=== PATIENT | female | born 1975 | race Caucasian/White ===

== ENCOUNTER 2020-12-28 16:06 | Outpatient (REF) | payer OTHER, SELFPAY ==
--- NOTE | ~2020-12-28 | MM_ITS ---
EXAMINATION: MM SCREENING DIGITAL BREAST TOMOSYNTHESIS, BILATERAL CLINICAL INFORMATION: Screening. Asymptomatic. The lifetime risk of breast cancer based on the Tyrer-Cuzick Model is 13%. COMPARISON: Mammography: 12/23/2019, 01/22/2018, 09/06/2016 TECHNIQUE: Digital breast tomosynthesis is performed in both the craniocaudal and mediolateral oblique views along with computer-aided detection (CAD). Synthesized 2D images are generated from the tomosynthesis. FINDINGS: The breasts are heterogeneously dense, which may obscure small masses (ACR BI-RADS breast composition Category c). Parenchymal pattern is similar to prior studies. There is no developing density. There is no interval mass or architectural modality or abnormal calcifications. The axilla and skin contours are unremarkable. MM/MM tomosynthesis screening BI IMPRESSION: No mammographic evidence of malignancy. ASSESSMENT: BI-RADS 1: Negative RECOMMENDATION: Routine annual mammography screening. This patient's information was entered into a reminder system with a target due date for their next mammogram.
== END 2020-12-28 16:07 | disposition home or self-care (01) ==
LOC: HO.MAMMO 16:06
PROVIDERS: Visit Provider Nurse Practitioner Family
DX: Z12.31 Encounter for screening mammogram for malignant neoplasm of breast (principal)
CPT/HCPCS: 77063; 77067

== ENCOUNTER 2021-11-05 11:46 | Emergency (ER) | payer OTHER, SELFPAY ==
--- NOTE | ~2021-11-05 | XR_ITS ---
EXAMINATION: XR CHEST CLINICAL INFORMATION: Cough and shortness of breath. COMPARISON: None TECHNIQUE: Frontal view of the chest was obtained. FINDINGS: Cardiac and mediastinal silhouettes are normal in appearance. Mild peribronchial thickening. The lungs are clear. XR/XR chest 1V IMPRESSION: Mild peribronchial thickening. The lungs and pleural spaces are clear.
[2021-11-05 12:11] VITALS: BP 144/81; PULSE 86; RESP 18; TEMP 36.9; O2SAT 97; BMI 33.7
--- NOTE | 2021-11-05 12:13 | ECG_ITS ---
Test Reason : cp Blood Pressure : / mmHG Vent. Rate : 088 BPM Atrial Rate : 088 BPM P-R Int : 154 ms QRS Dur : 074 ms QT Int : 352 ms P-R-T Axes : 033 -27 019 degrees QTc Int : 425 ms Normal sinus rhythm Possible Inferior infarct (cited on or before 04-NOV-2018) Abnormal ECG When compared with ECG of 04-NOV-2018 06:20, No significant change was found Referred By: Generic ED Physician Electronically Signed By:JANEE SNYDER MD
[2021-11-05 12:45] LABS: Influenza A Negative (Negative); Influenza B2 Negative (Negative)
[2021-11-05 12:46] LABS: COVID-19 Test Negative (Negative); IDNOW Serial# 08D9AD1C
--- NOTE | 2021-11-05 16:37 | ED.URI ---
HPI - URI/Sore Throat General Chief Complaint: Upper Respiratory Symptoms Stated Complaint: cough headache Time Seen by Provider: 11/05/21 16:37 Source: patient Mode of arrival: ambulatory History of Present Illness HPI Narrative: 46-year-old female with no significant past medical history presenting to the ED complaining dry cough, mild SOB, chest discomfort when coughing, headache, fatigue times a couple days. Has been presenting with similar symptoms. Denies abdominal pain, nausea/vomiting, ear pain, travel MD elicited complaint: cough and nasal congestion Onset (ago): day(s) Related Data Previous Rx's Medication Instructions Recorded acetaminophen 500 mg tablet 500 mg PO Q6H PRN fever or pain 11/05/21 (Tylenol Extra Strength) #14 tabs albuterol sulfate 90 mcg/actuation 2 puff inhalation Q4-6H PRN 11/05/21 aerosol inhaler shortness of breath or wheezing #6.7 grams benzonatate 100 mg capsule 100 mg PO TID PRN cough #14 caps 11/05/21 fluticasone propionate 50 2 spray intranasal DAILY #16 grams 11/05/21 mcg/actuation nasal spray,suspension (Flonase Allergy Relief) Allergies Allergy/AdvReac Type Severity Reaction Status Date / Time latex [Latex] Allergy Mild RASH Unverified 11/05/21 12:11 Penicillins Allergy Mild RASH Unverified 01/08/20 15:59 Review of Systems Review of Systems: Constitutional: No Fever, No Chills, + Fatigue, No Malaise ENT/Mouth: No Ear Pain, + Nasal Congestion, No Sinus Pain, No Hoarseness, No sore throat, + Rhinorrhea, No Swallowing Difficulty Eyes: No Eye Pain, No Swelling, No Redness, No Discharge, No Vision Changes Cardiovascular: + Chest Pain, + SOB, No Edema, No Palpitations Respiratory: + Cough, No Sputum, No Dyspnea Gastrointestinal: No Nausea, No Vomiting, No Diarrhea, No Constipation, No Abdominal pain Genitourinary: No Dysuria, No Urinary Frequency, No Hematuria Musculoskeletal: No joint pain, No Myalgias, No Joint Swelling Skin: No Skin Lesions, No rash Neuro: No Weakness, No Numbness, No Dizziness, + Headache Yes all other systems are reviewed and are negative [facility] Past Medical History Attestation statement: The following information was validated with the patient. Social History Social History Advance Directives: No Advance Directives Information Provided: No Physical Exam Vital Signs: Vital Signs: Last Vital Signs Temp 98.4 F 11/05/21 12:11 Pulse 86 11/05/21 12:11 Resp 18 11/05/21 12:11 BP 144/81 H 11/05/21 12:11 Pulse Ox 97 11/05/21 12:11 O2 Del Method 11/05/21 12:11 BMI result Body Mass Index 33.7 Const: General: cooperative, healthy appearing and no acute distress Orientation/consciousness: patient oriented x3 Limitations: no limitations HEENT: Head: Yes normal to inspection and Yes atraumatic Ears: hearing grossly normal bilaterally, external ears normal, TM's normal bilaterally and mastoids normal General nose exam: Normal external nose present Face and sinus: Yes normal facial exam Mouth: Normal oral and palatal mucosa present Throat: Yes posterior oropharynx normal, Yes tonsils normal, Yes uvula midline, No peritonsillar mass and No uvular edema Eyes: General: appearance normal, both eyes and all related structures EOM: EOMs intact bilaterally Neck: Neck: Yes normal visual inspection, Yes no lymphadenopathy and Yes no meningeal signs Resp: Effort & Inspection: normal respiratory effort and no respiratory distress Auscultation: clear to auscultation bilaterally, no rales, no rhonchi and no wheezes Cardio: Rate: regular rate Heart sounds: S1 normal heart sound present and S2 normal heart sound present Skin: Rashes: no rashes Wounds: no wounds Neuro: General: patient oriented x3, tone normal and no meningeal signs Gait exam (Neuro): Normal gait present Extrem: General: Yes normal to inspection Course Course Course Narrative: -COVID-19 and influenza negative XR chest 1V IMPRESSION: Mild peribronchial thickening. The lungs and pleural spaces are clear. >> results discussed with patient including worrisome signs and symptoms and strict return precautions MDM - URI/Sore Throat MDM Narrative Medical decision making narrative: 46-year-old female with no significant past medical history presenting to the ED complaining dry cough, mild SOB, chest discomfort when coughing, headache, fatigue times a couple days. On exam vital signs stable, in the ED, nontoxic appearing, exam nonfocal. Concern for viral illness including COVID-19 versus influenza. Rule out pneumonia versus bronchitis. Symptoms atypical for ACS/PE Plan: EKG, COVID-19/influenza testing, CXR Differential Diagnosis Differential diagnosis: Likely upper respiratory infection Medical Records Attestation: I reviewed the patient's medical records. Lab Data Attestation: I reviewed the patient's lab results. Labs: Lab Results 11/05/21 11/05/21 Range/Units 12:15 12:15 COVID-19 (BHAVESH) Negative (Negative) COVID-19 Clin Com See Note Influenza Type A (SNEHAL) Negative (Negative) Influenza Type B (SNEHAL) Negative (Negative) Influenza A & B Note See Note ECG Data Attestation: I personally reviewed and interpreted this ECG as follows: ECG interpretation date: 11/05/21 ECG interpretation time: 12:07 Interpretation: EKG normal sinus rhythm at a rate of 88. PA interval 154. QRS 74. No STEMI. No significant change when compared to prior EKGs Discharge Plan Discharge Clinical Impression: Upper respiratory infection Patient Disposition: Home, Self-Care Instructions: Viral Syndrome (ED) Additional Instructions: Your chest x-ray shows some thickening, no pneumonia. He tested negative for COVID-19 and the flu. rest. Stay hydrated. Tessalon Perles are for cough Flonase is a nasal decongestant. Use albuterol inhaler as needed for wheezing/shortness of breath In addition take Tylenol and Motrin Follow-up with her doctor If symptoms persist or worsen return to the emergency department Prescriptions: New acetaminophen [Tylenol Extra Strength] 500 mg tablet 500 mg PO Q6H PRN (Reason: fever or pain) Qty: 14 0RF fluticasone propionate [Flonase Allergy Relief] 50 mcg/actuation spray,suspension 2 spray intranasal DAILY Qty: 16 0RF Rx Instructions: administer into each nostril benzonatate 100 mg capsule 100 mg PO TID PRN (Reason: cough) Qty: 14 0RF albuterol sulfate 90 mcg/actuation HFA aerosol inhaler 2 puff inhalation Q4-6H PRN (Reason: shortness of breath or wheezing) Qty: 6.7 0RF Referrals: [facility] [Primary Care Provider] - 5 days
== END 2021-11-05 18:13 | disposition home or self-care (01) ==
PROVIDERS: Emergency Provider Emergency Medicine
DX: J06.9 Acute upper respiratory infection, unspecified (principal); Z20.822 Contact with and (suspected) exposure to COVID-19; R51.9 Headache, unspecified
CPT/HCPCS: 71045; 87502; 87635; 93005; 99283; 99284

== ENCOUNTER 2022-07-11 15:19 | Outpatient (REF) | payer OTHER, SELFPAY ==
--- NOTE | ~2022-07-11 | MM_ITS ---
EXAMINATION: MM SCREENING DIGITAL BREAST TOMOSYNTHESIS, BILATERAL CLINICAL INFORMATION: Screening. Asymptomatic. The lifetime risk of breast cancer based on the Tyrer-Cuzick Model is 9%. COMPARISON: Mammography: 12/28/2020, 12/23/2019, 01/22/2018 TECHNIQUE: Digital breast tomosynthesis is performed in both the craniocaudal and mediolateral oblique views along with computer-aided detection (CAD). Synthesized 2D images are generated from the tomosynthesis. FINDINGS: The breasts are heterogeneously dense, which may obscure small masses (ACR BI-RADS breast composition Category c). There are no significant masses, abnormal calcifications, or other abnormalities. Parenchymal pattern is similar to prior studies. There is no developing density or architectural abnormality. The axilla and skin contours are unremarkable. No significant changes. MM/MM tomosynthesis screening BI IMPRESSION: No mammographic evidence of malignancy. ASSESSMENT: BI-RADS 1: Negative RECOMMENDATION: Routine annual mammography screening. This patient's information was entered into a reminder system with a target due date for their next mammogram.
== END 2022-07-11 15:20 | disposition home or self-care (01) ==
LOC: HO.MAMMO 15:19
PROVIDERS: PCP Registered Nurse; Visit Provider Nurse Practitioner Family
DX: Z12.31 Encounter for screening mammogram for malignant neoplasm of breast (principal)
CPT/HCPCS: 77063; 77067

== ENCOUNTER 2022-11-06 11:54 | Outpatient (REF) | payer OTHER, SELFPAY ==
[2022-11-06 14:54] LABS: Cholesterol 190 mg/dL; HDL Cholesterol 58 mg/dL; LDL Cholesterol Calculated 119 mg/dl; Triglycerides 66 mg/dL
== END 2022-11-06 11:55 | disposition home or self-care (01) ==
LOC: HO.HHCL 11:54
PROVIDERS: Visit Provider Registered Nurse
DX: E78.00 Pure hypercholesterolemia, unspecified (principal); E55.9 Vitamin D deficiency, unspecified
CPT/HCPCS: 36415; 80061; 82306

== ENCOUNTER 2023-01-31 | Outpatient (REF) | payer OTHER, SELFPAY | END 2023-01-31 00:01 | disposition home or self-care (01) | LOC: HO.HHCLNP | PROVIDERS: Visit Provider Internal Medicine | DX: R30.9 Painful micturition, unspecified (principal) | CPT/HCPCS: 87086; 87088; 87186 ==

== ENCOUNTER 2023-02-26 | Outpatient (REF) | payer OTHER, SELFPAY | END 2023-02-26 00:01 | disposition home or self-care (01) | LOC: HO.HHCLNP | PROVIDERS: Visit Provider Nurse Practitioner Family | DX: R30.0 Dysuria (principal) | CPT/HCPCS: 87086 ==

== ENCOUNTER 2023-07-04 07:52 | Outpatient (REF) | payer OTHER, SELFPAY | END 2023-07-04 07:53 | disposition home or self-care (01) | LOC: HO.HHCLNP 07:52 | PROVIDERS: Visit Provider Emergency Medicine | DX: R30.0 Dysuria (principal) | CPT/HCPCS: 87086; 87088; 87186 ==

== ENCOUNTER 2023-07-04 13:10 | Emergency (ER) | payer OTHER, SELFPAY | END 2023-07-04 14:22 | disposition left against medical advice (07) | PROVIDERS: Emergency Provider Emergency Medicine; PCP Registered Nurse | DX: Z53.21 Procedure and treatment not carried out due to patient leaving prior to being seen by health care provider (principal); R53.81 Other malaise ==

== ENCOUNTER 2023-07-05 16:02 | Outpatient (REF) | payer OTHER, SELFPAY ==
[2023-07-05 17:42] LABS: Estimated Average Glucose 105 mg/dL; Hemoglobin A1c % 5.3 % (<6.0)
== END 2023-07-05 16:03 | disposition home or self-care (01) ==
LOC: HO.HHCL 16:02
PROVIDERS: Visit Provider Emergency Medicine
DX: N39.0 Urinary tract infection, site not specified (principal)
CPT/HCPCS: 36415; 83036

== ENCOUNTER 2023-07-20 11:39 | Outpatient (REF) | payer OTHER, SELFPAY | END 2023-07-20 11:40 | disposition home or self-care (01) | LOC: HO.MAMMO 11:39 | PROVIDERS: Visit Provider Registered Nurse | DX: Z12.31 Encounter for screening mammogram for malignant neoplasm of breast (principal) | CPT/HCPCS: 77063; 77067 ==

== ENCOUNTER → 2023-07-20 11:45 | Outpatient (BNV) | payer OTHER, SELFPAY | PROVIDERS: Visit Provider Radiology Diagnostic Radiology | DX: Z12.31 Encounter for screening mammogram for malignant neoplasm of breast (principal) | CPT/HCPCS: 77063; 77067 ==

== ENCOUNTER 2024-04-07 16:23 | Outpatient (REF) | payer OTHER, SELFPAY | END 2024-04-07 16:24 | disposition home or self-care (01) | LOC: HO.LNP 16:23 | PROVIDERS: Visit Provider Internal Medicine | DX: Z13.89 Encounter for screening for other disorder (principal) ==

== ENCOUNTER 2024-04-08 12:29 | Outpatient (REF) | payer OTHER, SELFPAY | END 2024-04-08 12:30 | disposition home or self-care (01) | LOC: HO.HHCLNP 12:29 | PROVIDERS: Visit Provider Internal Medicine | DX: R39.9 Unspecified symptoms and signs involving the genitourinary system (principal) | CPT/HCPCS: 87086 ==

== ENCOUNTER 2024-04-21 11:01 | Outpatient (REF) | payer OTHER, SELFPAY ==
[2024-04-21 13:10] LABS: MANUAL DIFF FLAG NO
[2024-04-21 13:22] LABS: Basophils Percent Auto 0.9 % (0-2); Eosinophils Absolute Auto 0.2 X10*3/uL (0.0-0.4); Eosinophils Percent Auto 4.5 % (0-4); Hematocrit 38.9 % (37.0-47.0); Hemoglobin 12.5 g/dl (12.0-16.0); Imm Gran Abs Auto 0.01 X10*3/uL (0.00-0.03); Imm Gran Pct Auto 0.2 % (0.0-0.4); Lymphocytes Absolute Auto 1.3 X10*3/uL (1.2-4.9); Lymphocytes Percent Auto 28.1 % (20-40); Mean Corpuscular HGB Conc 32.1 g/dl (31.0-35.0); Mean Corpuscular Hemoglobin 25.9 pg (27.0-33.0); Mean Corpuscular Volume 80.7 fL (80.0-98.0); Mean Platelet Volume 10.6 fL (9.4-12.3); Monocytes Absolute Auto 0.3 X10*3/uL (0.1-1.2); Monocytes Percent Auto 7.3 % (2-11); Neutrophils Absolute Auto 2.8 x10*3/uL (2.0-8.3); Platelet Count 317 X10*3/uL (160-400); Red Blood Count 4.82 X10*6/uL (4.20-5.50); White Blood Count 4.7 X10*3/uL (4.8-10.8)
[2024-04-21 14:42] LABS: Alanine Aminotransferase 22 U/L (0-31); Alkaline Phosphatase 78 U/L (39-117); Anion Gap 10 (12-20); Aspartate Amino Transferase 24 U/L (5-31); Bilirubin Total 0.4 mg/dL (0.0-1.0); Blood Urea Nitrogen 9 mg/dL (9-16); Carbon Dioxide 27 mmol/L (22-29); Chloride 108 mmol/L (96-108); Estimated Glomerular Filt Rate > 60; Glucose Random 92 mg/dL (60-115); Sodium 141 mmol/L (135-145)
[2024-04-22 22:28] LABS: Lyme Abs Screen <0.90 index
== END 2024-04-21 11:02 | disposition home or self-care (01) ==
LOC: HO.HHCL 11:01
PROVIDERS: Visit Provider Nurse Practitioner Family
DX: L03.111 Cellulitis of right axilla (principal)
CPT/HCPCS: 36415; 80053; 85025; 86617; 86618

== ENCOUNTER → 2024-07-22 15:30 | Outpatient (BNV) | payer OTHER, SELFPAY | PROVIDERS: Visit Provider Internal Medicine | DX: Z12.31 Encounter for screening mammogram for malignant neoplasm of breast (principal) | CPT/HCPCS: 77063; 77067 ==

== ENCOUNTER 2024-07-22 15:33 | Outpatient (REF) | payer OTHER, SELFPAY ==
--- OUTSIDE RECORDS SUMMARY | 2024-07-22 18:26 | XMS_ITS | Encounter Summary ---
Author Organization [employer] Address [address] [place] [address] Care Team Providers Care Health Program Specialist Name Role Phone Mahsa Bills IT RECRUITER Primary Care Provider [phone] Raven Stafford MD Primary Care Pro vider Miroslava Morillo NP Primary Care Provider [phone] Encounter Details Date Type Department Care Team (Late st Contact Info) Description 11/07/2022 Abstract [facility] [address] [place] [address] Mahsa Bills FNP [address] [place] [address] Dept [place] [address] Social History Tobacco Use Types Packs/Day Years Used Date Smoking Tobacco: Never Smokeless Tobacco: Never Alcohol Use Standard Drinks/Week Comments Yes 2 (1 standard drink = 0.6 oz pur e alcohol) occasionally Depression Answer Date Recorded Patient Health Questionnaire-9 Score 1 06/19/2022 Depression Answer Date Recorded Patient Health Questionnaire-2 Score 1 06/19/2022 Comments Unknown Sex and Gender Information Value Date Recorded Sex Assigned at Female 02/20/2022 10:14 AM EDT Legal Sex Female 10:14 AM EDT Gender Identity Female 02/20/2022 10:14 AM EDT Sexual Orientation Straight 02/20/2022 10 :14 AM EDT COVID-19 Exposure Response Date Recorded In the last 10 days, have yo u been in contact with someone who was confirmed or suspected to have Coronavirus/COVID-19? No / Unsure 10/23/2022 3:37 PM EDT documented as of this encounter Plan of Treatment Upcoming Encounters Date Type Department Care Team (Late st Contact Info) Description 09/23/2024 3:30 PM EDT Office Visit [facility] [address] [place], [place] [phone] Miroslava Morillo NP [address] [place], [place] [phone] documented as of this encounter Visit Diagnoses Not on filedocumented in this encounter Additional Health Concerns Assessment Noted Time PHQ-9 Depression Total Score: 1 06/19/19 23 2:18 PM EST documented as of this encounter Care Teams Health Program Specialist Relationship Specialty Start Date End Date Mahsa Bills FNP PCP - General Family Medicine 12/21/21 01/24/23 Raven Stafford MD [address] [place] [address] [phone] PCP - General Internal Medicine 01/25/23 04/06/24 Miroslava Morillo NP [address] [place] [address] [phone] PCP - General Family Medicine 04/07/24 documented as of this encounter
--- OUTSIDE RECORDS SUMMARY | 2024-07-22 18:26 | XMS_ITS | Clinical Summary ---
Author Organization [employer] Address [address] [facility] 7[address] [place] [address] Care Team Providers Care Senior Telecommunications Specialist Name Role Phone Miroslava Morillo NP Primary Care Provider [phone] Allergies Active Allergy Reactions Criticality Noted Date Comments Latex 12/20/2012 Penicillin V 12/31/2012 Penicillins 02/20/2024 Medications albuterol 108 (90 Base) MCG/ACT inhalerIndication s:Mild intermittent asthma without complication INHALE 2 PUFF BY MOUTH EVERY 4-6 HOURS NEEDED FOR SHORTNESS OF BREATH OR WHEEZING 2 Active Pain Reliever Extra Strength 500 MG tabletIndications :Bilateral calf pain TAKE 1 TABLET BY MOUTH EVERY 6 HOURS NEEDED FOR FEVER OR PAIN. 2 Active cholecalciferol (Vitamin D-3) 50 MCG (2000 UT) capsuleIndication s:Vitamin D deficiency Take 1 capsule (50 mcg) by mouth in the morning. 90 capsule 1 3 Active fluticasone (Flonase) 50 MCG/ACT nasal sprayIndications: Mild intermittent asthma without complication Administer 2 sprays into each nostril in the morning. Shake gently. Before first use, prime pump. After use, clean tip and replace cap. 16 g 3 3 Active lidocaine (Lidoderm) 5 % patchIndications: Lumbar radiculopathy, acute Apply 1 patch topically in the morning. Remove & discard patch within 12 hours or as directed by MD. 30 patch 1 3 Active Diclofenac Sodium (Voltaren) 1 % gelIndications:Ana mbar radiculopathy, acute Apply 2 g topically if needed in the morning and at bedtime (muscle pain). 100 g 3 3 Active Flovent HFA 110 MCG/ACT inhalerIndication s:Mild intermittent asthma without complication INHALE 1 PUFF BY MOUTH TWICE DAILY. RINSE MOUTH AFTER USING. 12 g 3 3 Active metoprolol tartrate (Lopressor) 25 MG tablet Take 25 mg by mouth 2 times daily. 3 Active Blood Pressure kit 1 kit in the morning. 1 kit 3 Active hydrocortisone 2.5 % ointmentIndicatio ns:Rash Apply topically 2 times daily. 28.35 g 4 Active cetirizine (ZyrTEC) 10 MG tablet Take 1 tablet (10 mg) by mouth Once per day. Prn. 30 tablet 4 Active triamcinolone (Kenalog) 0.1 % creamIndications: Other atopic dermatitis Apply topically if needed in the morning and at bedtime (pain and swelling). 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 Tingling in wrist that comes and goes. Aggravated while at work. EMG ordered 06/19/22, faxed 08/25/22. Not performed yet Assessment & Plan (10/23/2022 5:13 PM EDT): Will task team to assist in scheduling Followup 1 month or sooner PRN Abnormal EKG 10/23/2022 Overview (10/23/2022): Hx of abnormal EKG in ED on 11/04/2018 with inferior infarct of indeterminate age . No f/u with cardiology. 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 No f/u with cardiology. Irregular heart rhythm with skipped beats on auscultation today 10/23/22 w/ abnormal EKG Care managed by Cardiology. Reports stress test and 24 hour heart monitor. 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 Care managed by [facility]. Using compression stockings. Affects left leg most. Assessment & Plan (01/03/2023 7:52 PM EDT): Will Rx more DME compression stockings F/u PRN Assessment & Plan (10/23/2022 5:01 PM EDT): Followup PRN with specialist Health care maintenance 06/19/2022 Overview (10/23/2022): Last Mammo 12/30/20 - BIRADS 1 Pap: Scheduled next month IZ up to date Mild intermittent asthma 09/26/2016 Overview (10/23/2022): Refill Flonase Continue Flovent BID use. Pt using as prescribed DAVID use PRN Obesity 06/09/2015 Encounters Date Type Department Care Team Description 07/03/2024 Telephone [facility] [address] [place] [address] Gloria Shukla MA Chart Prep 04/29/2024 Telephone [facility] [address] [place] [address] Shital Hastings MA Recall from Last 3 Months Immunizations Name Administration Dates Next Due Hep B, adult 03/11/2014,10/22/2013,12/31/2012 Influenza Injectable Quadriv alant Preservative Free IIV4 MDCK 01/19/2022 Influenza injectable quadriv alent IIV4 with preservative 06/09/2015 Influenza injectable quadriv alent preservative free 06/19/2022,04/05/2020,01/24/2019,2014 Influenza, IIV3, injectable 01/30/2023, 4 Influenza, Split (incl. jose fied surface antigen) 12/31/2012 Moderna Covid-19 Vaccine 12+ 01/22/2024,01/31/20 23 Tdap 06/06/2019,02/28/2010 Social History Tobacco Use Types Packs/Day Years Used Date Smoking Tobacco: Never Passive Smoke Exposure: Never Smokeless Tobacco: Never Tobacco Cessation:Counseling Given: Not Answered Alcohol Use Standard Drinks/Week Comments Yes 2 (1 standard drink = 0.6 oz pur e alcohol) occasionally Depression Answer Date Recorded Patient Health Questionnaire-9 Score 1 06/19/2022 Housing Stability Answer Date Recorded What is your housing situation today? I have smith barrios 02/07/[address] you li ve. Do you have problems with any of the following? None of the above 02/07/2023 Food Insecurity Answer Date Recorded Within the past 12 months, y ou worried that your food would run out before you got money to buy more: Never True 02/07/2023 Within the past 12 months,th e food you bought just didn't last and you didn't have enough money to get more: Never True Transportation Answer Date Recorded In the past 12 months, has l ack of transportation kept you from medical appts, meetings, work or from getting things needed for daily living? No 02/07/2023 Utilities Answer Date Recorded In the past 12 months, has t he electric, gas, oil or water company threatened to shut off services in your home? No 02/07/2023 Depression Answer Date Recorded Patient Health Questionnaire-2 Score 1 06/19/2022 Comments Unknown Sex and Gender Information Value Date Recorded Sex Assigned at Female 02/20/2022 10:14 AM EDT Legal Sex Female 10:14 AM EDT Gender Identity Female 02/20/2022 10:14 AM EDT Sexual Orientation Straight 02/20/2022 10 :14 AM EDT Last Filed Vital Signs Vital Sign Reading Time Taken Comments Blood Pressure 136/84 04/21/2024 10:29 AM EST Pulse 88 04/21/2024 10:29 AM EST Temperature 37.1 ??C (98.7 ??F) 04/21/2024 10:[address] Respiratory Rate 14 04/21/2024 10:29 AM EST Oxygen Saturation 99% 04/21/2024 10:29 AM EST Inhaled Oxygen Concentration - - Weight 96.2 kg (212 lb) 04/21/2024 10:29 AM EST Height 162.6 cm (5' 4 ) 10/17/2023 4:56 PM EDT Body Mass Index 36.39 10/17/2023 4:56 PM EDT Plan of Treatment Upcoming Encounters Date Type Department Care Team (Late st Contact Info) Description 09/23/2024 3:30 PM EDT Office Visit [facility] [address] [place], [place] [phone] Miroslava Morillo NP [address], [place] [phone] Health Maintenance Due Date Last Done Comments CT Colonography 1973 Colonoscopy 1973 Colorectal Cancer Screening 1973 FIT DNA/Cologuard 1973 FIT 1973 FOBT 1973 Sigmoidoscopy 1973 Family Planning (PISQ) 01/10/1988 Hepatitis C Screening 1991 Pneumococcal Vaccine: 50+ Years (1 of 2 - PCV) 01/10/1992 Zoster Vaccines (1 of 2) 01/10/1992 Depression Screening 06/19/2023 06/19/2022, 06/19/19 23 SDOH Screening 06/19/2023 06/19/2022 Influenza Vaccine (#1) 2023 3, 06/19/2022, 01/19/2022, Additional history exists COVID-19 Vaccine ( season) 2024 01/22/2024, 01/30/2023, 02/21/2022, Additional history exists Tobacco Screening 04/07/2025 04/07/2024 Alcohol/Substance Use Screening 04/21/2025 04/21/2024 Mammogram 07/19/2025 07/20/2023, 09/0 06/2019, 01/23/2018 Pap Smear 10/04/2025 10/04/2022 Cervical Cancer Screening 10/05/2027 HPV/Cotest 10/05/2027 10/04/2022, 03/29/2017 Lipid Panel 11/07/2027 11/06/2022, 07/15/2021 DTaP/Tdap/Td Vaccines (3 - Td or Tdap) 06/06/2029 06/06/2019, 02/28/2010 RSV Patients and Patients Aged 60 years or older (1 - 1-dose 75+ series) 01/10/2048 Hepatitis B Vaccines Completed 03/11/2014, 10/22/2013, 12/31/2012 HIV Screening Completed 04/03/2019 HIB Vaccines Aged Out No longer eligi ble based on patient's age to complete this topic HPV Vaccines Aged Out No longer eligi ble based on patient's age to complete this topic Hepatitis A Vaccines Aged Out No long er eligible based on patient's age to complete this topic IPV Vaccines Aged Out No longer eligi ble based on patient's age to complete this topic Meningococcal Vaccine Aged Out No perla rubia eligible based on patient's age to complete this topic RSV under 20 months Aged Out No longe r eligible based on patient's age to complete this topic Rotavirus Vaccines Aged Out No longer eligible based on patient's age to complete this topic Procedures Procedure Name Priority Date/Time Associated Diagnosis Comments BI MAMMOGRAM SCREENING TOMOSYNTHESIS BILATERAL Routine 07/20/2023 11:55 AM EDT LIPID PANEL, STANDARD Routine 11/06/2022 11:59 AM EDT HM PAP/HPV Routine 10/04/2022 ZZZ HISTORICAL HIV AB/AG Routine 04/03/2019 2:40 PM EST from Last 3 Months or Most Recently Relevant to Health Maintenance Results * BI Mammogram Screening Tomosynthesis Bilateral (07/20/2023 11:55 AM EDT) Anatomical Region Laterality Modality Breast Bilateral Mammography 07/20/2023 11:5 5 AM EDT Narrative 07/23/2023 4:32 PM EDT ? [facility] ? [address] ?[place] [address] ? Mammography Report ? Signed ? Patient: Colon,Glory ?MR#: [id number] ?? 0 ? : 1975 ?Acct:[id number] ? Age/Sex: 48 / F ?ADM Date: 07/20/23 ? Loc: HO.MAMMO ? Attending Dr: Mahsa Dohertyon CANDY MIXER ? Ordering Physician: Sanju,Mahsa Airam CANDY MIXER ?Results: 1N ?? egative ? Date of Service: 07/20/23 ?Follow Up: 1 Year From Orig ?? inal Mammogram ? Procedure(s): MM tomosynthesis screening BI ?? Accession Number(s): [id number] ? cc: Mahsa Bills CANDY MIXER ? EXAMINATION: ?? MM SCREENING DIGITAL BREAST TOMOSYNTHESIS, BILATERAL ? CLINICAL INFORMATION: ? Screening. Asymptomatic. ? COMPARISON: ?? Mammography: This study is compared with prior exams dating back to ?? 2018. ? TECHNIQUE: ?? Digital breast tomosynthesis is performed in both the craniocaudal and ?? mediolateral oblique views along with computer-aided detection (CAD). ?? Synthesized 2D images are generated from the tomosynthesis. ? FINDINGS: ?? The breasts are heterogeneously dense, which may obscure small masses ?? (ACR BI-RADS breast composition Category c). ? There are no significant masses, abnormal calcifications, or other ?? abnormalities. ? MM/MM tomosynthesis screening BI ?? IMPRESSION: ?? No mammographic evidence of malignancy. ? ASSESSMENT: ? BI-RADS BI-RADS 1 - Negative ? RECOMMENDATION: ?? Routine annual mammography screening. ? 1 year F/U ? This examination should not preclude the clinical evaluation of a ?? suspicious palpable abnormality. ? This patient's information was entered into a reminder system with a ?? target due date for their next mammogram. ? Dictated By: ?Jaelyn Chow MD ? Signed By: ?<Electronically signed by Jaelyn Chow MD in OV> ? 07/23/238 ? DD/ 1155 ? TD/TT: ? Logistics Clerk: ? Procedure Note Eloy, Image - 07/23/2023 [facility] [address] [place] [address] Mammography Report Signed Patient: Daniel Dave#: [id number] 0 : 1975Acct:[id number] Age/Sex: 48 / FADM Date: 07/20/23 Loc: HO.MAMMO Attending Dr: Mahsa Bills CANDY MIXER Ordering Physician: Mahsa Bills FNPResults: 1N egative Date of Service: 07/20/23Follow Up: 1 Year From Orig inal Mammogram Procedure(s): MM tomosynthesis screening BI Accession Number(s): [id number] cc: Mahsa Bills CANDY MIXER EXAMINATION: MM SCREENING DIGITAL BREAST TOMOSYNTHESIS, BILATERAL CLINICAL INFORMATION: Screening. Asymptomatic. COMPARISON: Mammography: This study is compared with prior exams dating back to 2018. TECHNIQUE: Digital breast tomosynthesis is performed in both the craniocaudal and mediolateral oblique views along with computer-aided detection (CAD). Synthesized 2D images are generated from the tomosynthesis. FINDINGS: The breasts are heterogeneously dense, which may obscure small masses (ACR BI-RADS breast composition Category c). There are no significant masses, abnormal calcifications, or other abnormalities. MM/MM tomosynthesis screening BI IMPRESSION: No mammographic evidence of malignancy. ASSESSMENT: BI-RADS BI-RADS 1 - Negative RECOMMENDATION: Routine annual mammography screening. 1 year F/U This examination should not preclude the clinical evaluation of a suspicious palpable abnormality. This patient's information was entered into a reminder system with a target due date for their next mammogram. Dictated By: Jaelyn Chow MD Signed By: <Electronically signed by Jaelyn Chow MD in OV> 07/23/23 1628 DD/ 1155 TD/TT: Logistics Clerk: us Mahsa Bills CANDY MIXER IMG BI PROCEDURES Final Re sult * Lipid Panel, Standard (11/06/2022 11:59 AM EDT) Triglycerides 66 mg/dL [facility] Comment:Desirable Triglyceri de: less than 150 mg/dLBorderline High Triglyceride 150-199 mg/dLHigh Triglyceride: 200-499 mg/dLVery High Triglyceride: greater than or equal to 5OO mg/dL Cholesterol 190 mg/dL [facility] Comment:Desirable Cholestero l: less than 200 mg/dLBorderline High Cholesterol: 200-239 mg/dLHigh Cholesterol: greater than 239 mg/dL LDL Cholesterol Calculated 119 mg/dl [facility] Comment:Desirable LDL: less than 100 mg/dLNear Optimal/Above Optimal LDL: 110- 129 mg/dLBorderline High LDL: 130-159 mg/dLHigh LDL: 160-189 mg/dLVery High LDL: greater than or equal to 190 mg/dL HDL Cholesterol 58 mg/dL [facility] Comment:Desirable HDL: great er than 40 mg/dL Note: This HDL assay may give artificially low results in patients with liver disease. 11/06/2022 11:5 9 AM EDT 11/06/2022 1:40 PM EDT [facility] External Provider LAB BLO OD ORDERABLES Final Result [facility] [address] [place] [address] [phone] * Hm Pap Smear (10/04/2022) Pap Negative for intraephithelial lesion or malignancy Negative for intraephithelial lesion or malignancy, Other HPV Undetected Mahsa Bills CANDY MIXER HEALTH MAINTENANCE Final R esult * HIV AB/AG (04/03/2019 2:40 PM EST) HIV AG/AB NONREACTIVE [facility] Comment: HIV-1 p24 Ag and/or HIV-1/HIV-2 Ab not detected. ?? A test result that is nonreactive does not exclude the possibility of exposure to or infection with HIV-1 and/or HIV-2. Nonreactive results in this assay for individuals with prior exposure to HIV-1 and/or HIV-2 may be due to antigen and antibody levels that are below the limit of detection of this assay. ?? The Rogel Mica Plate Layer HIV Ag/Ab Combo assay result and supplemental assay results should be interpreted in conjunction with the patient's clinical presentation, history and other laboratory results. ??If the results are inconsistent with clinical evidence, additional testing is suggested to confirm the result. 04/03/2019 2:40 PM EST Michela Holcomb NP HISTORICAL/NON ORDERABLE LABS Fi nal Result [facility] [address] from Last 3 Months or Most Recently Relevant to Health Maintenance [place] [address] , [address] [place] [phone] Care Teams Senior Telecommunications Specialist Relationship Specialty Start Date End Date Miroslava Morillo NP [address] [place] [phone] PCP - General Family Medicine 04/07/24
--- OUTSIDE RECORDS SUMMARY | 2024-07-22 18:26 | XMS_ITS | Clinical Summary ---
Author Organization [facility] Address [address] [place] [address] Phone Care Team Providers Care Commercial Front Load Driver Name Role Phone Name, Gallito PARKER Primary Care Provider Allergies Active Allergy Reactions Criticality Noted Date Comments Latex 02/20/2024 Penicillins 02/20/2024 Medications zolpidem tartrate (ZOLPIDEM ORAL) Take 10 mg by mouth daily. Active rosuvastatin (CRESTOR) 20 mg tablet Take 1 Tablet by mouth daily. Active tacrolimus (PROGRAF) 0.5 mg capsule Take 1 Capsule by mouth 2 times daily. Active torsemide (DEMADEX) 20 mg tablet Take 1 Tablet by mouth daily. Active OMEPRAZOLE ORAL Take 40 mg by mouth daily. Active ferrous gluconate (FERGON) 324 mg (38 mg iron) tablet Take 1 Tablet by mouth daily (with breakfast). Active diclofenac (VOLTAREN) 1 % topical gel Apply 4 g topically 2 times daily. Active everolimus, immunosuppressi ve, (ZORTRESS) 0.25 mg tablet Take 0.5 mg by mouth daily. Active acyclovir (ZOVIRAX) 400 mg tablet Take 1 Tablet by mouth 5 times daily. Active allopurinoL (ZYLOPRIM) 100 mg tablet Take 1 Tablet by mouth daily. Active biotin 1 mg capsule Take 1 mg by mouth daily. Active calcium citrate (CALCITRATE) 950 mg (200 mg elemental calcium) tablet Take 1 Tablet by mouth daily. Active carvediloL (COREG) 12.5 mg tablet Take 1 Tablet by mouth 2 times daily (with meals). Active levothyroxine sodium (TIROSINT) 100 mcg capsule Take 100 mg by mouth daily. Active LORazepam (ATIVAN) 1 mg tablet Take 1 Tablet by mouth every 6 hours as needed. Active predniSONE (DELTASONE) 5 mg tablet Active diclofenac (Voltaren Arthritis Pain) 1 % topical gel Apply 4 g topically 2 (two) times a day. 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 Diverticular disease 02/14/2024 Dysphagia 02/14/2024 GERD (gastroesophageal reflux disease) HTN (hypertension) 02/14/2024 Hypothyroidism 02/14/2024 Insomnia 02/14/2024 Intractable left heel pain 02/14/2024 Leukocytosis 02/14/2024 Malignant neoplasm 02/14/2024 Migraine 02/14/2024 Neuropathy 02/14/2024 Osteopenia 02/14/2024 Pain 02/14/2024 Peripheral edema 02/14/2024 Pain and swelling of left ankle 02/14/2024 Encounters Date Type Department Care Team Description 06/04/2024 3:00 PM EST Office Visit [facility] [place] [address] [place] [phone] Felix Mojica, DPM Carmen's deformity, left (Primary Dx); Tendonitis, Achilles, left; Carmen's deformity, right; Tendonitis, Achilles, right from Last 3 Months Immunizations Name Administration Dates Next Due Moderna SARS-CoV-2 COVID-19, mRNA, LNP-S, preservative free 02/21/2022 Social History Tobacco Use Types Packs/Day Years Used Date Smoking Tobacco: Never Assessed Comments Unknown Sex and Gender Information Value Date Recorded Sex Assigned at Not on file Legal Sex Female 1:56 PM EST Gender Identity Not on file Sexual Orientation Not on file Last Filed Vital Signs Vital Sign Reading Time Taken Comments Blood Pressure - - Pulse - - Temperature - - Respiratory Rate - - Oxygen Saturation - - Inhaled Oxygen Concentration - - Weight 93.9 kg (207 lb) 06/04/2024 2:50 PM EST Height 162.6 cm (5' 4.02 ) 06/04/2024 2:50 PM ES T Body Mass Index 35.51 06/04/2024 2:50 PM EST Plan of Treatment Upcoming Encounters Date Type Department Care Team (Late st Contact Info) Description 07/23/2024 3:45 PM EDT Office Visit [facility] [place] [address] [phone] Felix Mojica, DPM [address] [address] Health Maintenance Due Date Last Done Comments Breast Cancer Screening 1973 Pneumococcal Vaccine: 50+ Years (1 of 2 - PCV) 01/10/1992 Pneumococcal Vaccine: Pediatrics (0 to 5 Years) and At-Risk Patients (6 to 64 Years) (1 of 2 - PCV) 01/10/1992 Zoster Vaccines (1 of 2) 01/10/1992 Cervical Cancer Screening: Pap Smear 1994 Influenza Vaccine (#1) 2023 , 06/19/2022, 01/19/2022, Additional history exists Colorectal Cancer Screening: Colonoscopy 01/29/2024 Depression Screening 01/29/2024 06/19/2022 HIV Screening 01/29/2024 Hepatitis C Screening 01/29/2024 Social Influencers of Health Screening 01/29/2024 Hypertension/CHF/CAD Annual BMP Blood Test 04/21/2025 04/21/2024 Cholesterol Screening (Lipid Panel) 11/07/2027 11/06/2022 DTaP,Tdap,and Td Vaccines (3 - Td or Tdap) 06/06/2029 06/06/2019, 02/28/2010 Hepatitis B Vaccines Completed 03/11/2014, 10/22/2013, 12/31/2012 COVID-19 Vaccine Completed 01/22/2024, 01/2023, 02/21/2022, Additional history exists HIB Vaccines Aged Out No longer eligi [...] on patient's age to complete this topic MMR Vaccines Aged Out No longer eligi ble based on patient's age to complete this topic Meningococcal ACWY Vaccine Aged Out N o longer eligible based on patient's age to complete this topic Meningococcal B Vacine Aged Out No lo nger eligible based on patient's age to complete this topic RSV Immunization Patients Under 20 months Aged Out No longer eligible based on patient's age to complete this topic Varicella Vaccines Aged Out No longer eligible based on patient's age to complete this topic Insurance [employer] Care Teams Commercial Front Load Driver Relationship Specialty Start Date End Date Name, MD Gallito [address] [place], [place] PCP - General 10/22/23
== END 2024-07-22 15:34 | disposition home or self-care (01) ==
LOC: HO.MAMMO 15:33
PROVIDERS: Visit Provider Registered Nurse
DX: Z12.31 Encounter for screening mammogram for malignant neoplasm of breast (principal)
CPT/HCPCS: 77063; 77067